=== PATIENT | female | born 1980 | race Caucasian/White ===

== ENCOUNTER 2018-01-10 13:17 | Outpatient (CLI) | payer BC | END 2018-01-10 13:18 | disposition home or self-care (01) | LOC: BICMAMMO 13:17 | PROVIDERS: ATTEND Student in an Organized Health Care Education/Training Program | DX: N64.4 Mastodynia (principal) | CPT/HCPCS: 77066; G0279 ==

== ENCOUNTER 2018-05-30 12:35 | Outpatient (CLI) | payer BC ==
--- NOTE | 2018-05-30 14:29 | RAD ---
CERVICAL SPINE RADIOGRAPHS FOUR VIEW SERIES: INDICATIONS: Paresthesia of left arm. FINDINGS: The imaged dens is intact. The lateral masses of C1 are appropriate aligned. No acute fracture or s ubluxation of the cervical spine is identified. The prevertebral soft tissues are normal in caliber. IMPRESSION: No significant osseous abnormality of the cervical spine. If there remains symptoms of radiculopathy , consider MRI cervical spine as followup. POS: [facility]
== END 2018-05-30 12:36 | disposition home or self-care (01) ==
LOC: BICRAD 12:35
PROVIDERS: ATTEND Physician Assistant
DX: M79.602 Pain in left arm (principal); R20.2 Paresthesia of skin
CPT/HCPCS: 72040

== ENCOUNTER 2018-08-01 10:08 | Outpatient (CLI) | payer BC ==
[2018-08-01 10:42] LABS: #Basophils 0.1 thou/uL (0.0-0.2); #Eosinphils 0.1 thou/uL (0.0-0.7); #Lymphocytes 2.5 thou/uL (1.20-3.40); #Monocytes 0.6 thou/uL (0.11-0.59); %Basophils 0.9 % (0.0-1.0); %Lymphocytes 40.7 % (21.0-51.0); %Monocytes 9.6 % (0.0-10.0); %Neutrophils 47.8 % (42.0-75.0); Hemoglobin 14.1 g/dL (12.0-16.0); Mean Corpuscular HGB CONC 33.3 g/dL (32.0-36.0); Mean Corpuscular Hemoglobin 31.3 pg (27.0-31.0); Mean Platelet Volume 10.5 fL (7.4-10.4); Platelet Count 161 thou/uL (130-400); RBC Distribution Width 12.4 % (11.5-14.5); White Blood Cell (WBC) Count 6.2 thou/uL (4.8-10.8)
--- NOTE | 2018-08-01 12:03 | RAD ---
2 VIEWS CHEST: Date: 08/01/18 COMPARISON: None. HISTORY: Lymphadenopathy. FINDINGS: Two views of the chest show normal sized cardiomediastinal silhouette. There is no evidence of consol idation, mass, or pleural effusion. The bones are unremarkable. IMPRESSION: No evidence of acute cardiopulmonary disease. POS: [facility]
[2018-08-01 15:32] LABS: HIV (1/2) Antibody/Antigen Non-Reactive (NonReactive)
[2018-08-02 09:15] LABS: Antinuclear AB Negative (Negative); Complement-C3 (Sendout) 127 mg/dL (82-167); Complement-C4 (Sendout) 24 mg/dL (14-44); DSDNA Autoabs (FARR) Sendout 2 IU/mL (0-9); Smooth Muscle Total Antibodies <0.2 AI (0.0-0.9); Thyroid Peroxidase Ab-Sendout 9 IU/mL (0-34); U1 RNP/snRNP IgG Autoabs <0.2 AI (0.0-0.9)
== END 2018-08-01 10:09 | disposition home or self-care (01) ==
LOC: SCSRAD 10:08
PROVIDERS: ATTEND Internal Medicine
DX: R59.0 Localized enlarged lymph nodes (principal)
CPT/HCPCS: 36415; 71046; 85025; 85652; 86140; 86160; 86225; 86235; 86376; 87389

== ENCOUNTER 2018-08-14 15:10 | Outpatient (CLI) | payer BC ==
--- NOTE | 2018-08-14 15:58 | ULT ---
FExam: Left axillary ultrasound HISTORY: Left axillary ultrasound noted on previous ultrasound COMPARISON: 01/10/2019 FINDINGS: On the current examination, there is no evidence of a definite axillary lymph node. Soft tissue echot exture is noted. IMPRESSION: Static images do not demonstrate an enlarged left axillary lymph node.
== END 2018-08-14 15:11 | disposition home or self-care (01) ==
LOC: SCSULT 15:10
PROVIDERS: ATTEND Surgery
DX: R59.1 Generalized enlarged lymph nodes (principal)
CPT/HCPCS: 76999